=== PATIENT | female | born 1990 | race Caucasian/White ===

== ENCOUNTER 2016-05-30 13:53 | Outpatient (CLI) | payer BC, OTHER | END 2016-05-30 23:00 | LOC: LAB SRH 13:53 | DX: Z34.00 Encounter for supervision of normal first pregnancy, unspecified trimester (principal) | CPT/HCPCS: 90001; 90074; 90078; 90155; 90364; 90469; 90648; 90851; 91004; 91023; 91227; 91228; 92863; 93140; 95059; 98480 ==

== ENCOUNTER 2016-07-31 16:28 | Outpatient (CLI) | payer OTHER, BC ==
--- NOTE | 2016-07-31 18:15 | DIAGNOSTIC IMAGING REPORT ---
PROCEDURE: US OB DETAILED ANATOMIC INDICATION: Check dates and anatomy. TECHNIQUE: Soni scale, color, and spectral Doppler images of the second trimester gravid uterus were obtained. COMPARISON: None. FINDINGS: There is a viable intrauterine in breech transverse position. Placenta is posterior and there is no evidence of previa. Normal fluid and cervix length (3.6 cm). anatomic survey is within normal limits including brain and ventricles, facial structures and orbits (to the extent visualized), nuchal region, spine, chest diaphragm, four-chamber heart, cardiac outflow tracts (to the extent visualized), abdomen, stomach, kidneys, three-vessel cord insertion, pelvis and urinary bladder. Upper and lower extremities are present. BPD 4.3 cm (19.0 weeks), HC 16.0 cm (19.0 weeks), AC 13.7 cm (19.0 weeks), FL 3.0 cm (19.3 weeks). IMPRESSION: 1. Viable intrauterine at 19.0 weeks menstrual age (plus or minus 1.5 weeks). YULISA is 12/24/2016. 2. Normal anatomic survey. 3. Breech transverse position.
== END 2016-07-31 23:00 ==
LOC: US SRH 16:28
DX: O32.1XX0 Maternal care for breech presentation, not applicable or unspecified (principal); Z3A.19 19 weeks gestation of pregnancy

== ENCOUNTER 2016-09-24 14:04 | Outpatient (CLI) | payer BC, OTHER ==
--- NOTE | 2016-09-24 15:11 | DIAGNOSTIC IMAGING REPORT ---
PROCEDURE: US OB RE-EVALUATION INDICATION: MEASURING LARGE FOR DATES TECHNIQUE: Soni scale, color and spectral Doppler images of the gravid uterus. COMPARISON: OB ultrasound 07/31/2016. FINDINGS: Single live intrauterine with breech presentation and posterior placenta without previa. Heart rate 152 bpm. ARTHUR measures 21.1 cm. Closed cervix measures 3.6 cm. Stomach, kidneys, and bladder are unremarkable. BPD 7.3 cm, 29 weeks 1 day; head circumference 25.9 cm, 28 weeks 1 day; abdominal circumference 23.8 cm, 28 weeks 1 day; femur length 5.3 cm, 28 weeks 1 day. Composite age 28 weeks 3 days. YULISA 12/14/2016. Estimated weight 1186 g plus/minus 178 g (2.61 pounds). IMPRESSION: 1. Single live intrauterine , breech, 28 weeks 3 days 2. YULISA 12/14/2016, 10 days accelerated growth.
== END 2016-09-24 23:00 | disposition home or self-care (01) ==
LOC: US SRH 14:04
DX: O32.1XX0 Maternal care for breech presentation, not applicable or unspecified (principal); Z3A.28 28 weeks gestation of pregnancy